=== PATIENT | male | born 2000 | race Hispanic/Latino ===

== ENCOUNTER 2024-08-26 14:06 | Emergency (ER) | payer OTHER ==
[~2024-08-26] VITALS: Ht 180.3 cm; Wt 110.5 kg
[2024-08-26 14:10] VITALS: BP 147/91; TEMP 96.7; O2SAT 100
== END 2024-08-26 17:16 | disposition home or self-care (01) ==
LOC: M ED 14:06
DX: M22.2X2 Patellofemoral disorders, left knee (principal); M25.442 Effusion, left hand

== ENCOUNTER 2025-01-10 20:21 | Emergency (ER) | payer OTHER ==
[~2025-01-10] VITALS: Ht 180.3 cm; Wt 106.9 kg
[2025-01-10 20:27] VITALS: BP 171/93; TEMP 98.9; O2SAT 98
[2025-01-11] MEDS: ACETAMINOPHEN 325 MG TAB PO ONE (06:56)
[2025-01-11] MEDS: IBUPROFEN 600MG TAB PO ONE (06:57)
[2025-01-11] MEDS: LIDOCAINE 5% (LIDODERM) PATCH TD ONE (06:58)
[2025-01-11] MEDS ORDERED: IBUP-1022 PO (06:59)
[2025-01-11] MEDS ORDERED: LIDO5DIS41 TOP (06:59)
[2025-01-11] MEDS ORDERED: ACET-907 PO (06:59)
== END 2025-01-11 07:16 | disposition home or self-care (01) ==
LOC: M ED 20:21
DX: S39.012A Strain of muscle, fascia and tendon of lower back, initial encounter (principal); F17.200 Nicotine dependence, unspecified, uncomplicated; X50.0XXA Overexertion from strenuous movement or load, initial encounter; Y92.9 Unspecified place or not applicable; Y93.9 Activity, unspecified; Y99.1 Military activity; Z79.1 Long term (current) use of non-steroidal anti-inflammatories (NSAID); Z79.899 Other long term (current) drug therapy